=== PATIENT | female | born 1985 | race American Indian/Alaskan Native ===

== ENCOUNTER 2016-05-15 12:27 | Observation (INO) | payer MEDICAID ==
[2016-05-15] MEDS ORDERED: LACTATED RINGERS 1,000 ML IV ONE (13:17)
[2016-05-15] MEDS ORDERED: ZOFRAN IV ONE ×2 (13:20→16:00)
[2016-05-15 16:47] LABS: Blood Urea Nitrogen 10 mg/dL (7-17); Calcium 9.4 mg/dL (8.4-10.2); Carbon Dioxide 15 mmol/L (22-30); Glucose 48 mg/dL (65-100); Potassium 5.4 mmol/L (3.6-5.0); Sodium 132 mmol/L (137-145)
[2016-05-15 16:56] LABS: Anion Gap 27 mmol/L
[2016-05-15] MEDS: LACTATED RINGERS 1,000 ML IV SCH (17:00)
[2016-05-15 17:20] LABS: Urine Drugs of Abuse Note Disclamer
[2016-05-15 17:31] LABS: Bacteria,Urine 1+ /HPF (Negative); Bilirubin,Urine NEG (Negative); Blood,Urine NEG (Negative); Ketones,Urine 80 mg/dL (Negative); Leukocyte Esterase,Urine NEG (Negative); Mucus,Urine FEW /HPF; Nitrite,Urine NEG (Negative); Urobilinogen,Urine < 2.0 mg/dL (<2.0)
[2016-05-15] MEDS: D5NS 1,000 ML IV SCH (18:30)
[2016-05-15] MEDS ORDERED: INFUVITE 10 ML in D5LR 1,000 ML IV ONE (18:54)
--- NOTE | 2016-05-15 19:10 | Short Stay Summary ---
Short Stay Documentation Date of service: 05/15/16 Narrative H&P: C/O: Nausea and vomiting of at 7 weeks gestation 30-year-old at 7+5 wks (SHANON 12/27/16 via sono today) presents with above issues and complaints, she is a [employer] patient. Essential history is patient with nausea vomiting for a while now, she presented to triage with complaint of being ~ 21 weeks gestation based on LMP. Sonogram obtained however shows patient is 7 weeks and 5 days gestation with SHANON 12/27/2016. Lab work shows hyponatremia, hyperkalemia hypoglycemia. She is also positive for MJ use She has received IV hydration and Zofran with some improvement, she is however driving and declines discharge home - "I want to feel completely better before I go home" Gynhx: History of Trichomonas Medhx: None Sughx: #3 (last in 12/29/2012) Obhx: As above Meds:None All:NKDA Fshx:Single, smoker (quit ~ 8 mths ago) MJ use Exam was unremarkable A: N/V of P: -Admit for observation -Continue Zofran scheduled basis -IV hydration with multivitamins -Repeat potassium and obtain CBC -Hyperemesis diet and education -Final disposition in the a.m. - History Past Medical History: No medical history Past Surgical History: (# 3) Social history: single, smoking, full code, no alcohol abuse, no prescription drug abuse, no IV drug use - Allergies and Medications Current Medications: Allergies No Known Allergies Allergy (Verified 05/15/16 13:16) Home Medications Medication Instructions Recorded Confirmed Last Taken Type Ondansetron [Zofran ODT TAB] 8 mg PO Q8HR #30 tab.rapdis 05/15/16 Unknown Rx Pnv95/Ferrous Fumarate/FA 1 each PO DAILY #30 tablet 05/15/16 Unknown Rx [Prenavite Tablet] Active Medications Lactated Ringer's (Lactated Ringers) 1,000 mls @ 150 mls/hr IV DIRECT ROB Last Admin: 05/15/16 17:00 Dose: 150 mls/hr Dextrose/Sodium Chloride (D5ns) 1,000 mls @ 150 mls/hr IV DIRECT ROB Last Admin: 05/15/16 18:30 Dose: 150 mls/hr Dextrose/Lactated Ringer's (D5lr) 1,000 mls @ 500 mls/hr IV DIRECT ROB Stop: 05/16/16 20:59 Multivitamins/Minerals 10 ml/ (Dextrose/Lactated Ringer's) 1,010 mls @ 150 mls/ hr IV ONCE ONE Stop: 05/16/16 01:37 Multivitamins/Iron/Calcium ( Vitamin) 1 each PO QDAY ROB Ondansetron HCl (Zofran) 4 mg IV Q6H ROB Promethazine HCl (Phenergan) 25 mg NV Q6H ROB - Physical exam General appearance: no acute distress, well-nourished Lungs: Clear to auscultation Gastrointestinal: normal, no tenderness, no distended, no masses, no guarding, no hepatomegaly, no splenomegaly, no obese, no costovertebral Female Genitourinary: deferred Extremities: no ischemia Neurological: Normal gait, Normal speech, Strength at 5/5 X4 ext Short Stay Discharge Plan Prescriptions: Pnv95/Ferrous Fumarate/FA [Prenavite Tablet] 1 each PO DAILY #30 tablet Ondansetron [Zofran ODT TAB] 8 mg PO Q8HR #30 tab.zacarias
[2016-05-15 20:00] LABS: Basophils % (Auto) 0.7 % (0.0-1.8); Eosinophils % (Auto) 0.2 % (0.0-4.3); Hematocrit 36.7 % (30.3-42.9); Hemoglobin 12.4 gm/dl (10.1-14.3); Mean Corpuscular HGB Conc 34 % (30-34); Mean Corpuscular Hemoglobin 29 pg (28-32); Mean Corpuscular Volume 85 fl (79-97); Platelet Count 387 K/mm3 (140-440); Red Blood Count 4.33 M/mm3 (3.65-5.03); Red Cell Distribution Width 13.9 % (13.2-15.2); White Blood Count 9.7 K/mm3 (4.5-11.0)
[2016-05-15] MEDS: PHENERGAN PR SCH (21:10)
[2016-05-16] MEDS: ZOFRAN IV SCH ×4 (02:00→21:56)
[2016-05-16] MEDS: PHENERGAN PR SCH ×4 (03:19→22:09)
[2016-05-16] MEDS: LACTATED RINGERS 1,000 ML IV SCH (05:53)
[2016-05-16] MEDS ORDERED: PRENATAL VITAMIN PO SCH (10:00)
[2016-05-16 10:02] LABS: Anion Gap 17 mmol/L; Blood Urea Nitrogen 3 mg/dL (7-17); Calcium 8.1 mg/dL (8.4-10.2); Carbon Dioxide 21 mmol/L (22-30); Glucose 135 mg/dL (65-100); Potassium 3.5 mmol/L (3.6-5.0); Sodium 134 mmol/L (137-145)
[2016-05-16] MEDS: PEPCID IV PRN ×2 (10:33→21:58)
--- NOTE | 2016-05-16 12:32 | Progress Note ---
Assessment and Plan A: IUP at 7+6 wks with N/V of P: -Increase Zofran to 8 mg every 8 -Continue Present care - Patient Problems (1) Nausea/vomiting in Current Visit: Yes Status: Acute Subjective - Subjective Date of service: 05/16/16 Principal diagnosis: IUP @ 7+6 wks, N/V of Interval history: Patient seen and examined, stable. Had 2 episodes of nausea and vomiting this morning, now just producing sputum. Patient reports: no new complaints, no vaginal bleeding, no contractions Objective - Vital Signs Vital Signs: Vital Signs - 12hr 05/16/16 05/16/16 04:00 07:22 Temperature 98.4 F 98.7 F Pulse Rate [ 62 Right From Monitor] Pulse Rate [ 82 Right Radial] Respiratory 18 18 Rate Blood Pressure 92/49 114/60 [Right Arm] - Labs Labs: Abnormal Labs 05/15/16 05/15/16 05/15/16 15:28 19:40 22:20 [place] % (Auto) 7.9 H Sodium 132 L Potassium 5.4 H 3.5 L D Chloride 95.0 L Carbon Dioxide 15 L BUN Creatinine 0.5 L Glucose 48 L Calcium 05/16/16 09:00 [place] % (Auto) Sodium 134 L Potassium 3.5 L Chloride Carbon Dioxide 21 L BUN 3 L Creatinine 0.5 L Glucose 135 H Calcium 8.1 L Laboratory Results - last 24 hr 05/15/16 05/15/16 05/15/16 15:28 17:00 17:00 WBC RBC Hgb Hct MCV MCH MCHC RDW Plt Count Lymph % (Auto) [place] % (Auto) Eos % (Auto) Baso % (Auto) Lymph # [place] # Eos # Baso # Seg Neutrophils % Seg Neutrophils # Sodium 132 L Potassium 5.4 H Chloride 95.0 L Carbon Dioxide 15 L Anion Gap 27 BUN 10 Creatinine 0.5 L Estimated GFR > 60 BUN/Creatinine Ratio 20.00 Glucose 48 L Calcium 9.4 Urine Color Yellow Urine Turbidity Clear Urine pH 5.0 Ur Specific [place] 1.025 Urine Protein 30 mg/dl Urine Glucose (UA) Neg Urine Ketones 80 Urine Blood Neg Urine Nitrite Neg Urine Bilirubin Neg Urine Urobilinogen < 2.0 Ur Leukocyte Esterase Neg Urine WBC (Auto) 1.0 Urine RBC (Auto) 3.0 U Epithel Cells (Auto) 1.0 Urine Bacteria (Auto) 1+ Urine Mucus Few Urine Opiates Screen Presumptive negative Urine Methadone Screen Presumptive negative Ur Barbiturates Screen Presumptive negative Ur Phencyclidine Scrn Presumptive negative Ur Amphetamines Screen Presumptive negative U Benzodiazepines Scrn Presumptive negative Urine Cocaine Screen Presumptive negative U Marijuana (THC) Screen Presumptive positive Drugs of Abuse Note Disclamer Hepatitis A IgM Ab Hep Bs Antigen Hep B Core IgM Ab Hepatitis C Antibody 05/15/16 05/15/16 05/15/16 19:40 19:40 22:20 WBC 9.7 RBC 4.33 Hgb 12.4 Hct 36.7 MCV 85 MCH 29 MCHC 34 RDW 13.9 Plt Count 387 Lymph % (Auto) 27.8 [place] % (Auto) 7.9 H Eos % (Auto) 0.2 Baso % (Auto) 0.7 Lymph # 2.7 [place] # 0.8 Eos # 0.0 Baso # 0.1 Seg Neutrophils % 63.4 Seg Neutrophils # 6.1 Sodium Potassium 3.5 L D Chloride Carbon Dioxide Anion Gap BUN Creatinine Estimated GFR BUN/Creatinine Ratio Glucose Calcium Urine Color Urine Turbidity Urine pH Ur Specific [place] Urine Protein Urine Glucose (UA) Urine Ketones Urine Blood Urine Nitrite Urine Bilirubin Urine Urobilinogen Ur Leukocyte Esterase Urine WBC (Auto) Urine RBC (Auto) U Epithel Cells (Auto) Urine Bacteria (Auto) Urine Mucus Urine Opiates Screen Urine Methadone Screen Ur Barbiturates Screen Ur Phencyclidine Scrn Ur Amphetamines Screen U Benzodiazepines Scrn Urine Cocaine Screen U Marijuana (THC) Screen Drugs of Abuse Note Hepatitis A IgM Ab -1 Hep Bs Antigen Non-reactive Hep B Core IgM Ab Non-reactive Hepatitis C Antibody Non-reactive 05/16/16 09:00 WBC RBC Hgb Hct MCV MCH MCHC RDW Plt Count Lymph % (Auto) [place] % (Auto) Eos % (Auto) Baso % (Auto) Lymph # [place] # Eos # Baso # Seg Neutrophils % Seg Neutrophils # Sodium 134 L Potassium 3.5 L Chloride 100.0 Carbon Dioxide 21 L Anion Gap 17 BUN 3 L Creatinine 0.5 L Estimated GFR > 60 BUN/Creatinine Ratio 6.00 Glucose 135 H Calcium 8.1 L Urine Color Urine Turbidity Urine pH Ur Specific [place] Urine Protein Urine Glucose (UA) Urine Ketones Urine Blood Urine Nitrite Urine Bilirubin Urine Urobilinogen Ur Leukocyte Esterase Urine WBC (Auto) Urine RBC (Auto) U Epithel Cells (Auto) Urine Bacteria (Auto) Urine Mucus Urine Opiates Screen Urine Methadone Screen Ur Barbiturates Screen Ur Phencyclidine Scrn Ur Amphetamines Screen U Benzodiazepines Scrn Urine Cocaine Screen U Marijuana (THC) Screen Drugs of Abuse Note Hepatitis A IgM Ab Hep Bs Antigen Hep B Core IgM Ab Hepatitis C Antibody
[2016-05-16] MEDS: D5LR 1,000 ML IV SCH ×3 (12:33→19:34)
[2016-05-16] MEDS ORDERED: PEPCID PO SCH (22:00)
[2016-05-16] MEDS ORDERED: AMBIEN PO ONE (23:30)
[2016-05-17] MEDS: D5NS 1,000 ML IV SCH (03:07)
[2016-05-17] MEDS: ZOFRAN IV SCH (05:47)
--- NOTE | 2016-05-17 08:40 | Progress Note ---
Assessment and Plan A: IUP at 8 wks with N/V of & Ptyalism -Doing well P: -Await Nutrition consult -Likely D/C after above - Patient Problems (1) Nausea/vomiting in Current Visit: Yes Status: Acute (2) Ptyalism Current Visit: Yes Status: Acute Subjective - Subjective Date of service: 05/17/16 Principal diagnosis: IUP @ 8 wks, N/V of Interval history: Patient seen and examined, stable. No further episodes of vomiting noted per staff development educator; however continues to have ptyalism Patient reports: no new complaints, no loss of fluid, no vaginal bleeding, no contractions Objective - Vital Signs Vital Signs: Vital Signs - 12hr 05/16/16 05/17/16 23:05 04:35 Temperature 99.6 F 99.2 F Pulse Rate [ 74 65 Right Radial] Respiratory 18 16 Rate Blood Pressure 98/59 97/69 [Right Arm] - Labs Labs: Abnormal Labs 05/15/16 05/15/16 05/15/16 15:28 19:40 22:20 [place] % (Auto) 7.9 H Sodium 132 L Potassium 5.4 H 3.5 L D Chloride 95.0 L Carbon Dioxide 15 L BUN Creatinine 0.5 L Glucose 48 L Calcium 05/16/16 09:00 [place] % (Auto) Sodium 134 L Potassium 3.5 L Chloride Carbon Dioxide 21 L BUN 3 L Creatinine 0.5 L Glucose 135 H Calcium 8.1 L Laboratory Results - last 24 hr 05/16/16 09:00 Sodium 134 L Potassium 3.5 L Chloride 100.0 Carbon Dioxide 21 L Anion Gap 17 BUN 3 L Creatinine 0.5 L Estimated GFR > 60 BUN/Creatinine Ratio 6.00 Glucose 135 H Calcium 8.1 L
--- NOTE | 2016-05-17 08:49 | Discharge Summary ---
Providers - Providers Date of Admission: 05/15/16 20:15 Date of discharge: 05/17/16 Attending physician: MARCY MARTIN MD 05/15/16 18:54 Consult to Dietitian/Nutrition [CONS] Routine Physician Instructions: Reason For Exam: Reason for Consult: hyper grav Reason for Consult: Diet education Primary care physician: MARCY MARTIN MD Hospitalization Reason for admission: other (IUP at < 9 wks with N/V of ) Discharge diagnosis: other (IUP at 8 wks with N/V of and Ptyalism) Hospital course: Uncomplicated hospital course. Admitted and started on antiemetics and IV hydration. Electrolyte imbalance was corrected; had nutrition discussion and advised to start BRAT diet. Discharged home in stable condition Condition at discharge: Good Disposition: DISCHARGED TO HOME OR SELFCARE - Discharge Diagnoses (1) Nausea/vomiting in Status: Acute (2) Ptyalism Status: Acute Plan - Discharge Medications Prescriptions: Pnv95/Ferrous Fumarate/FA [Prenavite Tablet] 1 each PO DAILY #30 tablet Ondansetron [Zofran ODT TAB] 8 mg PO Q8HR #30 tab.rapdis - Provider Discharge Summary Activity: routine Diet: other (Start BRAT diet, follow advise on Nutrition) Additional instructions: [] Smoking cessation referral if applicable(refer to patient education folder for contact #) [] Refer to [facility] Booklet Call your doctor immediately for: * Fever > 100.5 * Heavy vaginal bleeding ( >1 pad per hour) * Severe persistent headache * Shortness of breath * Reddened, hot, painful area to leg or breast * Drainage or odor from incision. * Keep incision clean and dry at all times and follow doctor's instructions regarding bathing/showering - Follow up plan Follow up: MARCY TRIMBLE MD [Primary Care Provider] - 7 Days Forms: Work/School Release Form
--- NOTE | 2016-05-17 09:19 | Ultrasound Report ---
OB ultrasound: Endovaginal and transabdominal imaging demonstrates an intrauterine gestational sac containing a yolk sac as well as a fetus with having a crown-rump length of approximately 14.1 mm. This is equivalent to a 7 week 5 day gestation. There is heart motion of 162 beats per minute. No intrauterine complication identified. The uterus measures approximately 5.5 x 6.0 x 9.5 cm. Neither ovary is identified nor is there any free fluid. Impressions: Viable prather IUP with no complication identified.
[2016-05-17 14:52] VITALS: BP 98/50
== END 2016-05-17 14:35 | disposition home or self-care (01) ==
LOC: TRG 12:27 → OB 20:15 → TRG 20:15
PROVIDERS: ADMIT Obstetrics & Gynecology; ATTEND Obstetrics & Gynecology
DX: O21.9 Vomiting of pregnancy, unspecified (principal); O26.892 Other specified pregnancy related conditions, second trimester; R11.0 Nausea; O99.612 Diseases of the digestive system complicating pregnancy, second trimester; K11.7 Disturbances of salivary secretion; Z3A.21 21 weeks gestation of pregnancy
CPT/HCPCS: 36415; 76801; 76817; 80048; 80074; 81001; 84132; 85025; 96361; 96365; 96366; 96375; 96376; G0378; G0479; J2405; J7042; J7120; J7121; 80301; 96360; 96374

== ENCOUNTER 2016-09-03 14:51 | Emergency (ER) | payer MEDICAID ==
[2016-09-03 15:52] VITALS: BP 105/60
[2016-09-03 16:31] LABS: Hematocrit 34.6 % (30.3-42.9); Hemoglobin 11.4 gm/dl (10.1-14.3); Mean Corpuscular HGB Conc 33 % (30-34); Mean Corpuscular Hemoglobin 29 pg (28-32); Mean Corpuscular Volume 88 fl (79-97); Platelet Count 310 K/mm3 (140-440); Red Blood Count 3.92 M/mm3 (3.65-5.03); Red Cell Distribution Width 14.3 % (13.2-15.2); White Blood Count 19.9 K/mm3 (4.5-11.0)
[2016-09-03] MEDS ORDERED: TYLENOL PO ONE (16:42)
[2016-09-03] MEDS ORDERED: ZOFRAN IV ONE (16:42)
[2016-09-03] MEDS ORDERED: NACL 0.9% 1000 ML 1,000 ML IV ONE (16:42)
[2016-09-03 16:46] LABS: Anion Gap 21 mmol/L; Blood Urea Nitrogen 8 mg/dL (7-17); Calcium 8.2 mg/dL (8.4-10.2); Carbon Dioxide 18 mmol/L (22-30); Chloride 101.7 mmol/L (98-107); Glucose 77 mg/dL (65-100); Potassium 3.8 mmol/L (3.6-5.0); Sodium 137 mmol/L (137-145)
[2016-09-03 17:07] LABS: Bilirubin,Urine NEG (Negative); Blood,Urine NEG (Negative); Ketones,Urine 80 mg/dL (Negative); Leukocyte Esterase,Urine NEG (Negative); Mucus,Urine 1+ /HPF; Nitrite,Urine NEG (Negative); Urobilinogen,Urine < 2.0 mg/dL (<2.0)
[2016-09-03 17:32] LABS: Alanine Aminotransferase 11 units/L (7-56); Albumin 3.6 g/dL (3.9-5); Albumin/Globulin Ratio 1.1 %; Alkaline Phosphatase 90 units/L (35-129); Bilirubin,Total 0.2 mg/dL (0.1-1.2); Lipase 41 units/L (13-60); Total Protein 6.9 g/dL (6.3-8.2)
[2016-09-03 17:33] LABS: Basophils % (Manual) 0 % (0.0-1.8); Bilirubin,Direct < 0.2 mg/dL (0-0.2); Blastocytes % (Manual) 0 %; Eosinophils % (Manual) 0 % (0.0-4.3)
[2016-09-03 17:35] LABS: Diff Status Complete; Platelet Estimate Consistent w Auto; RBC Morphology Normal
--- NOTE | 2016-09-03 17:42 | Emergency Department Report ---
HPI - General Chief Complaint: Nausea/Vomiting/Diarrhea Time Seen by Provider: 09/03/16 16:31 - HPI HPI: The patient is a 30-year-old EGA 24 weeks female who presents for evaluation of abdominal pain and vomiting. The patient reports nausea, vomiting , and epigastric abdominal pain since 10 AM this morning, approximately 6 hours prior to my evaluation, constant since onset, pain crampy in quality, 5/10 in severity. The patient denies fever, chills, night sweats, diarrhea, blood in the stool, dark tarry stool, dysuria, hematuria, flank pain, vaginal bleeding, vaginal discharge, inability to pass flatus. She shares that she has established care with an ELECTRICAL INSTRUMENT TECHNICIAN and has received an ultrasound confirming intrauterine . ED Past Medical Hx - Past Medical History Previous Medical History?: No Hx Hypertension: No Hx Congestive Heart Failure: No Hx Diabetes: No Hx Deep Vein Thrombosis: No Hx Renal Disease: No Hx Sickle Cell Disease: No Hx Seizures: No Hx Asthma: No Hx COPD: No Hx HIV: No - Surgical History Past Surgical History?: Yes Additional Surgical History: x 3, wisdom teeth removed. - Social History Smoking Status: Former Smoker Substance Use Type: None - Medications Home Medications: Home Medications Medication Instructions Recorded Confirmed Last Taken Type Ondansetron [Zofran ODT TAB] 8 mg PO Q8HR #30 tab.rapdis 05/15/16 Unknown Rx Pnv95/Ferrous Fumarate/FA 1 each PO DAILY #30 tablet 05/15/16 Unknown Rx [Prenavite Tablet] Famotidine [Pepcid] 20 mg PO BID #60 tablet 05/17/16 Unknown Rx Promethazine [Phenergan] 12.5 mg RI Q6H PRN #30 supp.rect 05/17/16 Unknown Rx Famotidine [Pepcid] 20 mg PO BID #30 tablet 09/03/16 Unknown Rx Ondansetron [Zofran TAB] 4 mg PO Q8HR PRN #15 tablet 09/03/16 Unknown Rx ED Review of Systems ROS: Stated complaint: N/ VOMITTING BLOOD Other details as noted in HPI Constitutional: denies: fever ENT: denies: throat or neck pain Respiratory: denies: cough, shortness of breath Cardiovascular: denies: chest pain Endocrine: denies unexplained weight loss or gain Gastrointestinal: reports: abdominal pain, nausea Genitourinary: denies: dysuria Musculoskeletal: denies: leg swelling Skin: denies: rash Neurological: denies: headache Hematological/Lymphatic: denies: easy bleeding or easy bruising Psych: denies sadness or hopelessness Physical Exam - Physical Exam Vital Signs: Vital Signs 09/03/16 15:46 Temperature 98.1 F Pulse Rate 97 H Respiratory 18 Rate Blood Pressure 105/60 O2 Sat by Pulse 99 Oximetry Physical Exam: General: well-nourished, well-developed, no acute distress Head: Normocephalic, atraumatic Eyes: normal sclera ENT: Mucous membranes are pale and dry Neck: No neck stiffness, no cervical adenopathy Respiratory: Breath sounds equal bilaterally, no wheezing, rales, or rhonchi Cardio: S1 and S2 present, no murmurs, rubs, gallops, capillary refill is delayed Abdomen: Normoactive bowel sounds, soft abdomen, epigastric tenderness to palpation present, no rigidity, no guarding or rebound tenderness Musc: No pitting edema Skin: No rash Neuro: no facial drooping, normal speech Psych: Normal affect ED Course Vital Signs 09/03/16 15:46 Temperature 98.1 F Pulse Rate 97 H Respiratory 18 Rate Blood Pressure 105/60 O2 Sat by Pulse 99 Oximetry ED Medical Decision Making - Lab Data Result diagrams: 09/03/16 16:06 09/03/16 16:06 - Medical Decision Making The patient was seen and examined by myself. The patient is placed on a lock fitter and continuous pulse ox. On initial evaluation, the patient was found to be in no distress. Evaluation orders are placed. IV access is established and the patient is given 1 L normal saline fluid bolus for txt of dehydration, and IV Zofran for nausea, a tab of tylenol for her pain. Lab results revealed elevated WBC, tobacco during , and otherwise labs were unremarkable including hemoglobin, hematocrit, electrolytes, renal function , LFTs, lipase, and urinalysis. heart tones were obtained and were found to be within normal limit at 160. The patient was reevaluated and reported that her nausea and abdominal pain were resolved. The patient is stable for discharge with outpatient follow-up. The patient is given follow-up and return instructions. The patient expressed understanding and agreed with the plan. The patient is discharged in stable condition. Critical care attestation.: If time is entered above; I have spent that time in minutes in the direct care of this critically ill patient, excluding procedure time. ED Disposition Clinical Impression: Nausea/vomiting in , Abdominal pain, acute, epigastric, Dehydration Disposition: DISCHARGED TO HOME OR SELFCARE Is pt being admited?: No Does the pt Need Aspirin: No Condition: Stable Instructions: Acute Abdominal Pain (ED), Hyperemesis Gravidarum (ED) Prescriptions: Famotidine [Pepcid] 20 mg PO BID #30 tablet Ondansetron [Zofran TAB] 4 mg PO Q8HR PRN #15 tablet PRN Reason: Nausea Referrals: PRIMARY CARE,MD [Primary Care Provider] - 3-5 Days Time of Disposition: 17:36
== END 2016-09-03 17:52 | disposition home or self-care (01) ==
LOC: ED 14:51
DX: O21.9 Vomiting of pregnancy, unspecified (principal); E86.0 Dehydration; R11.0 Nausea; R10.13 Epigastric pain; Z87.891 Personal history of nicotine dependence; Z3A.24 24 weeks gestation of pregnancy
CPT/HCPCS: 36415; 80048; 80074; 81001; 83690; 85007; 85025; 96361; 96374; 99284; J2405; J7030

== ENCOUNTER 2016-10-17 20:03 | Outpatient (CLI) | payer MEDICAID ==
[2016-10-17] MEDS ORDERED: LACTATED RINGERS 500 ML IV ONE (20:12)
[2016-10-17 20:44] LABS: Bacteria,Urine 1+ /HPF (Negative); Bilirubin,Urine NEG (Negative); Blood,Urine NEG (Negative); Ketones,Urine NEG (Negative); Leukocyte Esterase,Urine NEG (Negative); Nitrite,Urine NEG (Negative); Protein,Urine <15 mg/dL mg/dL (Negative); Urobilinogen,Urine < 2.0 mg/dL (<2.0); WBC,Urine < 1.0 /HPF (0.0-6.0)
[2016-10-17] MEDS ORDERED: PEPCID IV ONE (20:51)
[2016-10-17] MEDS ORDERED: PEPCID IV SCH (21:00)
[2016-10-17] MEDS ORDERED: SUBLIMAZE IV ONE (21:03)
[2016-10-17] MEDS ORDERED: CARAFATE PO SCH (22:00)
[2016-10-19 04:51] VITALS: BP 105/56
== END 2016-10-17 22:45 | disposition home or self-care (01) ==
LOC: TRG 20:03
PROVIDERS: ATTEND Obstetrics & Gynecology
DX: O26.893 Other specified pregnancy related conditions, third trimester (principal); R06.02 Shortness of breath; M54.9 Dorsalgia, unspecified; Z3A.30 30 weeks gestation of pregnancy
CPT/HCPCS: 59025; 81001; 96360; 96374; 96375; J3010; J7120

== ENCOUNTER 2016-10-29 15:46 | Outpatient (CLI) | payer MEDICAID ==
[2016-10-29] MEDS ORDERED: LACTATED RINGERS 500 ML IV ONE (16:00)
[2016-10-29 16:17] VITALS: BP 114/68
[2016-10-29 17:54] LABS: Bilirubin,Urine NEG (Negative); Blood,Urine NEG (Negative); Ketones,Urine 20 mg/dL (Negative); Leukocyte Esterase,Urine NEG (Negative); Mucus,Urine FEW /HPF; Nitrite,Urine NEG (Negative); Protein,Urine <15 mg/dL mg/dL (Negative); Urobilinogen,Urine < 2.0 mg/dL (<2.0)
== END 2016-10-29 18:30 | disposition left against medical advice (07) ==
LOC: TRG 15:46
PROVIDERS: ATTEND Obstetrics & Gynecology
DX: O47.03 False labor before 37 completed weeks of gestation, third trimester (principal); Z3A.31 31 weeks gestation of pregnancy; Z87.891 Personal history of nicotine dependence
CPT/HCPCS: 59025; 81001

== ENCOUNTER 2016-11-21 01:54 | Observation (INO) | payer MEDICAID ==
[2016-11-21] MEDS ORDERED: LACTATED RINGERS 1,000 ML ONE (02:08)
[2016-11-21] MEDS ORDERED: LACTATED RINGERS 1,000 ML IV ONE (02:18)
[2016-11-21 02:31] LABS: Bacteria,Urine 1+ /HPF (Negative); Bilirubin,Urine NEG (Negative); Blood,Urine MOD (Negative); Ketones,Urine NEG (Negative); Leukocyte Esterase,Urine NEG (Negative); Nitrite,Urine NEG (Negative); Protein,Urine <15 mg/dL mg/dL (Negative); Urobilinogen,Urine < 2.0 mg/dL (<2.0); WBC,Urine < 1.0 /HPF (0.0-6.0)
[2016-11-21] MEDS ORDERED: MACROBID PO ONE (02:53)
[2016-11-21] MEDS ORDERED: BRETHINE IVP ONE (03:15)
[2016-11-21 07:36] VITALS: BP 114/75
== END 2016-11-21 09:11 | disposition home or self-care (01) ==
LOC: TRG 01:54 → OBSVTOIN 03:16 → LD 03:16 → INTOOBSV 03:16
PROVIDERS: ADMIT Obstetrics & Gynecology; ATTEND Obstetrics & Gynecology
DX: O62.9 Abnormality of forces of labor, unspecified (principal); O26.893 Other specified pregnancy related conditions, third trimester; M54.5 Low back pain; Z3A.34 34 weeks gestation of pregnancy; Z87.891 Personal history of nicotine dependence
CPT/HCPCS: 81001; G0378; J3105; J7120; 96361; 96374

== ENCOUNTER 2016-12-02 21:28 | Inpatient (IN) | payer MEDICAID ==
[~2016-12-02 21:28] MED LIST: NACL 0.9% IR ONE; WATER FOR IRRIG STERILE IR ONE
[2016-12-02] MEDS ORDERED: LACTATED RINGERS 1,000 ML IV ONE (21:49)
[2016-12-02] MEDS ORDERED: PEPCID IV ONE ×2 (23:22→23:24)
[2016-12-02] MEDS ORDERED: BICITRA PO ONE ×2 (23:22→23:24)
[2016-12-02] MEDS ORDERED: REGLAN IV ONE ×2 (23:22→23:24)
--- NOTE | 2016-12-02 23:34 | History and Physical Report ---
History of Present Illness Date of examination: 12/02/16 Chief complaint: Severe abdominal pains after falling History of present illness: Pt is a 31yo BF EDC 12/27/16; EGA 36 3/7 weeks presents to [facility] L&D complaining of severe abdominal pains after a fall in the shower. On presentation to Triage FHT's 170-180 with decels - improved with IV hydration, but Ob u/s showed possible abruption, and there is marked tenderness with the u/ s probe over the placenta. Her abdomen is firm, and I suspect she may be abrupting. We will proceed with a Repeat C Section with BTL. She has been hospitalized several times during this , the last time being - 04/01. She received care at [facility] since 6 weeks and course has been complicated by previous c section x 3 and psychological stress due to her fiance's murder in May of this year. records are available, but GBS is unknown. Past History Past Medical History: GERD Past Surgical History: section (x3) REIMBURSEMENT CONSULTANT History: abnormal PAP smear, chlamydia Family/Genetic History: cancer Social history: no significant social history, single, smoking - Obstetrical History Expected Date of Delivery: 12/27/16 Actual Gestation: 36 Week(s) 4 Day(s) : 6 Medications and Allergies Allergies Allergy/AdvReac Type Severity Reaction Status Date / Time oxycodone Allergy Mild Hives Verified 10/18/16 20:50 Home Medications Medication Instructions Recorded Confirmed Last Taken Type Ondansetron [Zofran ODT TAB] 8 mg PO Q8HR #30 tab.rapdis 05/15/16 10/20/16 Unknown Rx Pnv95/Ferrous Fumarate/FA 1 each PO DAILY #30 tablet 05/15/16 10/20/16 Unknown Rx [Prenavite Tablet] Promethazine [Phenergan] 12.5 mg NM Q6H PRN #30 supp.rect 05/17/16 10/20/16 Unknown Rx Famotidine [Pepcid] 20 mg PO BID #30 tablet 09/03/16 10/20/16 Unknown Rx Ondansetron [Zofran TAB] 4 mg PO Q8HR PRN #15 tablet 09/03/16 10/20/16 Unknown Rx Pantoprazole [Protonix INJ] 40 mg PO QDAY #30 vial 10/24/16 Unknown Rx Pantoprazole [Protonix] 40 mg PO QDAY #30 tablet 10/24/16 Unknown Rx Active Meds: Active Medications Citric Acid/Sodium Citrate (Bicitra) 30 ml PO ONCE ONE Stop: 12/02/16 23:23 Citric Acid/Sodium Citrate (Bicitra) 30 ml PO ONCE ONE Stop: 12/02/16 23:25 Famotidine (Pepcid) 20 mg IV ONCE ONE Stop: 12/02/16 23:23 Famotidine (Pepcid) 20 mg IV ONCE ONE Stop: 12/02/16 23:25 Cefazolin Sodium (Ancef/Sterile Water 2 Gm/20 Ml) 2 gm in 20 mls @ 80 mls/hr IV PREOP NR PRN Reason: Protocol Lactated Ringer's (Lactated Ringers) 1,000 mls @ 2,250 mls/hr IV PREOP ROB Stop: 12/04/16 00:12 Oxytocin/Sodium Chloride (Pitocin/Ns 20 Unit/1000ml Drip) 20 units in 1,000 mls @ 0 mls/hr IV TITR ROB PRN Reason: As Directed Lactated Ringer's (Lactated Ringers) 1,000 mls @ 2,250 mls/hr IV PREOP ROB Stop: 12/04/16 00:12 Oxytocin/Sodium Chloride (Pitocin/Ns 20 Unit/1000ml Drip) 20 units in 1,000 mls @ 0 mls/hr IV TITR ROB PRN Reason: As Directed Cefazolin Sodium (Ancef/Sterile Water 2 Gm/20 Ml) 2 gm in 20 mls @ 80 mls/hr IV PREOP NR PRN Reason: Protocol Metoclopramide HCl (Reglan) 10 mg IV ONCE ONE Stop: 12/02/16 23:23 Metoclopramide HCl (Reglan) 10 mg IV ONCE ONE Stop: 12/02/16 23:25 Review of Systems All systems: negative - Vital Signs Vital signs: Vital Signs Pulse BP 117 H 160/65 12/02/16 21:38 12/02/16 21:38 Temp Pulse Resp BP Pulse Ox 98.3 F 108 H 20 111/70 98 12/02/16 21:52 12/02/16 22:42 12/02/16 21:52 12/02/16 22:09 12/02/16 22:42 - Physical Exam Breasts: Positive: deferred Cardiovascular: Regular rate Lungs: Positive: Clear to auscultation Abdomen: Positive: normal appearance, tenderness (RUQ) Genitourinary (Female): Positive: normal external genitalia Uterus: Positive: enlarged, tender Extremities: Positive: normal - Obstetrical FHR: category 2 Uterine Contraction Monitor Mode: External Results Result Diagrams: 12/02/16 21:58 All other labs normal. Ultrasound: pending Assessment and Plan - Patient Problems (1) 36 weeks gestation of Onset Date: 12/02/16 Current Visit: Yes Status: Acute Plan to address problem: A: IUP @ 36 3/7 weeks Previous C Section x 3 Cat II Tracing Suspect abruptio placenta Desires permanent sterilization P: Admit to L&D for repeat C Section with BTL Will obtain BTL papers. (2) Previous delivery affecting Onset Date: 12/02/16 Current Visit: Yes Status: Acute
[2016-12-02] MEDS ORDERED: LACTATED RINGERS 1,000 ML IV SCH ×2 (23:45)
[2016-12-02] MEDS ORDERED: ANCEF/STERILE WATER 2 GM/20 ML 2 GM/20 ML SYRINGE IV NR ×2 (23:45)
[2016-12-02] MEDS ORDERED: PITOCin/NS 20 UNIT/1000ML DRIP 20 UNITS/1,000 ML BAG IV SCH ×2 (23:45)
[2016-12-02 23:49] LABS: Basophils % (Auto) 0.5 % (0.0-1.8); Eosinophils % (Auto) 0.9 % (0.0-4.3); Hematocrit 30.9 % (30.3-42.9); Mean Corpuscular HGB Conc 33 % (30-34); Mean Corpuscular Hemoglobin 28 pg (28-32); Mean Corpuscular Volume 85 fl (79-97); Platelet Count 337 K/mm3 (140-440); Red Blood Count 3.63 M/mm3 (3.65-5.03); White Blood Count 13.5 K/mm3 (4.5-11.0)
--- NOTE | 2016-12-03 | Ultrasound Report ---
FINAL REPORT PROCEDURE: US OB LIMITED TECHNIQUE: Real-time limited sonographic examination was performed for evaluation of size, position, heartbeat, fluid volume for each fetus with image documentation (1 or more fetuses). CPT 42464 HISTORY: tachycardia and decelerations COMPARISON: No prior studies are available for comparison. FINDINGS: Single live intrauterine gestation. Placenta is posterior and fundal. There is no previa. There are prominent retroplacental veins but no evidence of hematoma. Amniotic fluid index is 13.9 centimeters. heart rate is 163 beats per minute. IMPRESSION: Limited examination. Single live intrauterine gestation. Placenta is posterior and fundal. There is no previa. There are prominent retroplacental veins but no evidence of hematoma. Amniotic fluid index is 13.9 centimeters. heart rate is 163 beats per minute.
--- NOTE | 2016-12-03 00:01 | Ultrasound Report ---
FINAL REPORT PROCEDURE: US OB BPP WO NON-STRESS TECHNIQUE: Real-time limited sonographic examination was performed for evaluation of size, position, heartbeat, fluid volume for each fetus with image documentation (1 or more fetuses). CPT 76656 HISTORY: tachycardia COMPARISON: No prior studies are available for comparison. FINDINGS: breathing movements: 0. movements: 2. posterior and tone: 2. Qualitative amniotic fluid volume: 2. Total score for biophysical profile: 6/8. IMPRESSION: Total score for biophysical profile: 6/8.
[2016-12-03] MEDS ORDERED: ZOFRAN ONE (00:09)
[2016-12-03] MEDS ORDERED: VERSED ONE ×3 (00:45→01:00)
[2016-12-03] MEDS ORDERED: MORPHINE ONE (00:45)
[2016-12-03] MEDS ORDERED: SUBLIMAZE ONE ×2 (00:45→01:01)
[2016-12-03] MEDS ORDERED: XYLOCAINE MPF 2% ONE ×3 (00:50→01:01)
[2016-12-03] MEDS ORDERED: NACL 0.9% 1000 ML 1,000 ML ONE (01:04)
--- NOTE | 2016-12-03 01:25 | Operative Report ---
Operative Report Operative Report: Date of procedure: 12/03/2016 Pre-operative diagnosis: 1. Intrauterine at 36-3/7 weeks 2. Previous 3 3. Nonreassuring surveillance 4. Suspected placental abruption status post fall 5. Desires permanent sterilization Post-operative diagnosis: Same Procedure name(s): Repeat low transverse section with bilateral tubal ligation Surgeon: Romario Shaw MD Web Specialist: None Anesthesia: Spinal anesthesia by Dr. Bowman EBL: 700 mL's Findings: A 3023 g female infant Apgars 8 at 1 minute 8 at 5 minutes. Meconium- stained fluid. Normal uterus with no obvious evidence of abruption. Normal tubes and ovaries bilaterally. Procedure: After the patient was prepped and draped in usual sterile fashion, and after satisfactory level of epidural anesthesia was obtained, the skin knife was used to make a transverse skin incision through the previous skin scars. The incision was excised down to layer of the fascia, which was nicked in the midline and extended laterally using the Bovie cautery. The rectus muscles were dissected off the rectus fascia both superiorly and inferiorly. The rectus bellies in the midline, and the peritoneum was entered under direct visualization. The peritoneal incision was extended superiorly and inferiorly. A bladder flap was created and the bladder blade was then placed. The uterus was scored in a curvilinear linear fashion, entered in the midline revealing meconium-stained amniotic fluid. The 's head was delivered onto the surgical field, and the oropharynx and nasopharynx were bulb suctioned. The rest of the infant's body was delivered, cord was doubly clamped and cut and the was handed to the waiting respiratory team. Cord blood was then obtained. The placenta was manually removed from the uterus , and the uterus removed from its normal anatomical position. After gentle uterine lavage, the incision was inspected and found to be without extensions. It was then closed in 2 layers using 0 Vicryl suture in a running interlocking fashion, the second layer imbricating the first. At this point, attention was turned to the tubal ligation. First the right fallopian tube was grasped using the [place], and after identifying the fimbriated end the right tube a Filshie clip was applied to the proximal portion of the tube. The same procedure was performed on the left fallopian tube. The tube was grasped using a Jim, after first identifying the fimbriated end of the left fallopian tube a Filshie clip was applied to the proximal portion of the tube. After good hemostasis was achieved, copious amounts or irrigation was performed , and the gutters were suctioned free of blood and blood clots. The Tisseel sealant was sprayed across the uterine incision. The uterus was then returned to its normal anatomical position, and after excellent hemostasis assured, the peritoneum was reapproximated using 3-0 Vicryl suture in a running interlocking fashion, and then the rectus muscles were reapproximated using 3-0 Vicryl suture in a [id number] configuration. The fascia was then reapproximated using 0 Vicryl suture in running interlocking fashion. The subcutaneous layer was made hemostatic using Bovie cautery, the Tisseel sealant was sprayed across the fascial incision and the skin edges reapproximated using 4-0 Vicryl suture in a subcuticular fashion. Patient tolerated the procedure well was transported to recovery in stable condition.
[2016-12-03] MEDS ORDERED: SENOKOT PO PRN (01:29)
[2016-12-03] MEDS ORDERED: LANSINOH TP PRN (01:29)
[2016-12-03] MEDS ORDERED: MYLICON PO PRN (01:29)
[2016-12-03] MEDS ORDERED: NARCAN 0.4 MG/1 ML IV PRN (01:29)
[2016-12-03] MEDS ORDERED: TORADOL IV PRN (01:29)
[2016-12-03] MEDS ORDERED: TUCKS PAD TP PRN (01:29)
[2016-12-03] MEDS ORDERED: PHENERGAN PR PRN (01:29)
[2016-12-03] MEDS ORDERED: MILK OF MAGNESIA PO PRN (01:29)
[2016-12-03] MEDS ORDERED: TYLENOL PO PRN (01:29)
--- NOTE | 2016-12-03 01:34 | Anesthesia Consultation ---
Anesthesia Consult and Med Hx Date of service: 12/03/16 - Airway Anesthetic Teeth Evaluation: Good ROM Head & Neck: Adequate Mental/Hyoid Distance: Adequate Mallampati Class: Class II Intubation Access Assessment: Probably Good - Pulmonary Exam CTA: Yes - Cardiac Exam Cardiac Exam: RRR - Pre-Operative Health Status ASA Pre-Surgery Classification: ASA2, Emergency Proposed Anesthetic Plan: Epidural, Spinal - Pulmonary Hx Asthma: No COPD: No Hx Pneumonia: No - Cardiovascular System Hx Hypertension: No - Central Nervous System Hx Seizures: No Hx Psychiatric Problems: No - Endocrine Hx Renal Disease: No Hx End Stage Renal Disease: No Hx Hypothyroidism: No Hx Hyperthyroidism: No - Hematic Hx Anemia: No Hx Sickle Cell Disease: No - Other Systems Hx Alcohol Use: No - Additional Comments Anesthesia Medical History Comments: +IUP, PREVIOUS X 3
--- NOTE | 2016-12-03 01:34 | Anesthesia Day of Surgery ---
Anesthesia Day of Surgery - Day of Surgery Patient Examined: Yes Patient H&P Reviewed: Yes Patient is NPO: No (EMERGENCY, WILL PROCEED)
--- NOTE | 2016-12-03 01:35 | Post Anesthesia Evaluation ---
- Post Anesthesia Evaluation Patient Participated: Yes Airway Patent: Yes Stable Respiratory Function: Yes Nausea/Vomiting: No Temp > 96.8F: Yes Pain Manageable: Yes Adequeate Hydration: Yes Anesthesia Complications: No Block Receding Appropriately: Yes Patient on Ventilator: No
[2016-12-03] MEDS ORDERED: D5LR 1,000 ML IV SCH (02:00)
[2016-12-03] MEDS ORDERED: PITOCin/NS 20 UNIT/1000ML DRIP 20 UNITS/1,000 ML BAG IV SCH (02:00)
[2016-12-03] MEDS ORDERED: SODIUM CHLORIDE FLUSH SYRINGE 10 ML IV NR (02:00)
[2016-12-03] MEDS ORDERED: MORPHINE PCA 30MG/30ML IV SCH (02:00)
[2016-12-03] MEDS: ZOFRAN IV PRN ×2 (05:16→13:33)
[2016-12-03 06:05] LABS: Bacteria,Urine 1+ /HPF (Negative); Bilirubin,Urine NEG (Negative); Blood,Urine NEG (Negative); Ketones,Urine NEG (Negative); Leukocyte Esterase,Urine NEG (Negative); Nitrite,Urine NEG (Negative); Protein,Urine <15 mg/dL mg/dL (Negative); Urobilinogen,Urine < 2.0 mg/dL (<2.0)
[2016-12-03] MEDS: ANCEF/NS 1 GM/50 ML 1 GM/50 ML BAG IV SCH ×2 (08:04→15:46)
[2016-12-03] MEDS: PRENATAL VITAMIN PO SCH (10:03)
[2016-12-03] MEDS: FEOSOL PO SCH (10:03)
[2016-12-03] MEDS: BENADRYL PO PRN ×2 (10:11→21:09)
[2016-12-03 14:41] LABS: Hematocrit 27.6 % (30.3-42.9); Hemoglobin 8.9 gm/dl (10.1-14.3)
[2016-12-03] MEDS ORDERED: DIFLUCAN PO ONE (16:29)
[2016-12-03] MEDS: PERCOCET 5/325 PO PRN (17:39)
[2016-12-03] MEDS: MOTRIN PO PRN (23:28)
[2016-12-03] MEDS: NORCO 5/325 PO PRN (23:50)
[2016-12-04] MEDS: NORCO 5/325 PO PRN ×3 (04:30→14:37)
[2016-12-04] MEDS ORDERED: BOOSTRIX IM ONE (06:00)
[2016-12-04] MEDS ORDERED: M-M-R II VACCINE SUB-Q ONE (06:00)
--- NOTE | 2016-12-04 08:56 | Progress Note ---
Assessment and Plan A: POD 1 VSS Ambulating well well Mental status is good P: Continue postoperative care Encourage continued ambulation Subjective - Subjective Date of service: 12/04/16 Principal diagnosis: POD 1 Interval history: Pt is a 31yo BF EDC 12/27/16; presented to [facility] L&D complaining of severe abdominal pains after a fall in the shower. On presentation to Triage FHT's 170- 180 with decels - improved with IV hydration, but Ob u/s showed possible abruption, and there was marked tenderness with the u/s probe over the placenta. Her abdomen was firm, and abruption suspected. MD proceeded with a Repeat C Section with BTL. She received care at [facility] since 6 weeks and course has been complicated by previous c section x 3 and psychological stress due to her fiance's murder in May of this year. records are available, but GBS is unknown. Pt delievereed by repeat C/ S on 12/03 @ 0100. Patient reports: appetite normal, voiding normally, pain well controlled, ambulating normally [place]: doing well Objective - Vital Signs Latest vital signs: Vital Signs Temp Pulse Resp BP 12/04/16 08:16 20 12/03/16 23:00 98.6 F 77 16 122/82 12/03/16 17:39 18 12/03/16 16:20 98.0 F 75 18 128/87 12/03/16 12:50 18 12/03/16 12:00 98.1 F 76 20 132/86 12/03/16 10:07 18 12/03/16 08:56 97.8 F 77 17 127/87 Intake and Output 12/03/16 12/04/16 12/04/16 22:59 06:59 14:59 Intake Total 800 Balance 800 Intake: Oral 200 Intake, Free Water 600 Other: Total, Intake Amount 200 - Exam Cardiovascular: Present: Regular rate Lungs: Present: Normal air movement Vulva: both: normal (scant lochia) Uterus: Present: fundal height below umbilicus Extremities: Present: normal Deep Tendon Reflex Grade: Normal +2 Incision: Present: normal, dry, dressed - Labs Labs: Abnormal lab results 12/03/16 Range/Units 14:04 Hgb 8.9 L (10.1-14.3) gm/dl Hct 27.6 L (30.3-42.9) % - Allied health notes Allied health notes reviewed: nursing
[2016-12-04] MEDS: FEOSOL PO SCH (10:27)
[2016-12-04] MEDS: PRENATAL VITAMIN PO SCH (10:27)
[2016-12-04] MEDS: MOTRIN PO PRN ×3 (10:27→23:03)
[2016-12-04] MEDS: PERCOCET 5/325 PO PRN (18:18)
[2016-12-04] MEDS: BENADRYL PO PRN (18:19)
[2016-12-05] MEDS: NORCO 5/325 PO PRN ×3 (01:04→12:07)
[2016-12-05] MEDS: MOTRIN PO PRN ×2 (06:07→12:07)
--- NOTE | 2016-12-05 07:48 | Progress Note ---
Assessment and Plan A: POD 1 VSS Ambulating well well Mental status is good P: Continue postoperative care Encourage continued ambulation D/C today Subjective - Subjective Date of service: 12/05/16 Principal diagnosis: POD 1 Interval history: Pt is a 31yo BF EDC 12/27/16; presented to [facility] L[facility]D complaining of severe abdominal pains after a fall in the shower. On presentation to Triage FHT's 170- 180 with decels - improved with IV hydration, but Ob u/s showed possible abruption, and there was marked tenderness with the u/s probe over the placenta. Her abdomen was firm, and abruption suspected. proceeded with a Repeat C Section with BTL. She received care at [facility] since 6 weeks and course has been complicated by previous c section x 3 and psychological stress due to her fiance's murder in May of this year. records are available, but GBS is unknown. Pt delievereed by repeat C/ S on 12/03 @ 0100. Patient reports: appetite normal, voiding normally, pain well controlled, ambulating normally [place]: doing well Objective - Vital Signs Latest vital signs: Vital Signs Temp Pulse Resp BP 12/05/16 00:08 98 F 70 20 122/83 12/04/16 18:18 20 12/04/16 17:00 98.6 F 78 18 108/73 12/04/16 14:37 20 12/04/16 08:58 98.5 F 75 18 117/78 12/04/16 08:16 20 Intake and Output 12/04/16 12/05/16 12/05/16 22:59 06:59 14:59 Intake Total 620 240 Balance 620 240 Intake: Oral 380 Intake, Free Water 240 240 Other: Total, Intake Amount 380 # Voids Indwelling Catheter 2 Void 1 # Bowel Movements 0 - Exam Cardiovascular: Present: Regular rate Lungs: Present: Normal air movement Vulva: both: normal (scant lochia) Uterus: Present: fundal height below umbilicus Deep Tendon Reflex Grade: Normal +2 Incision: Present: normal, dry, intact - Allied health notes Allied health notes reviewed: nursing
--- NOTE | 2016-12-05 07:50 | Discharge Summary ---
Providers - Providers Date of Admission: 12/02/16 23:40 Date of discharge: 12/05/16 Attending physician: MARCY MARTIN MD Primary care physician: MARCY MARTIN MD Hospitalization Reason for admission: other (S/P fall in shower. Suspected abruption) Delivery: Procedure: repeat low transverse Incision: normal, dry, intact complications: none Discharge diagnosis: delivery Jermyn baby: female Hospital course: uneventful Condition at discharge: Good Disposition: DC-01 TO HOME OR SELFCARE Plan - Discharge Medications Prescriptions: Ferrous Sulfate [Feosol 325 MG tab] 325 mg PO BID #60 tablet HYDROcodone/APAP 5-325 [[place] 5/325] 1 each PO Q6HR PRN #30 tablet PRN Reason: Pain Ibuprofen [Motrin] 800 mg PO Q8HR PRN #30 tablet PRN Reason: Moder Pain Unrelieved By [place] Vit W-Ca,Fe,FA(<1 mg) [ Vitamins] 1 each PO DAILY #30 tablet - Provider Discharge Summary Activity: routine, no sex for 6 weeks, no heavy lifting 4 weeks, no strenuous exercise Diet: routine Instructions: routine Additional instructions: [] Smoking cessation referral if applicable(refer to patient education folder for contact #) [] Refer to [facility] Booklet Call your doctor immediately for: * Fever > 100.5 * Heavy vaginal bleeding ( >1 pad per hour) * Severe persistent headache * Shortness of breath * Reddened, hot, painful area to leg or breast * Drainage or odor from incision. * Keep incision clean and dry at all times and follow doctor's instructions regarding bathing/showering - Follow up plan Follow up: [facility] [Provider Group] - 7 Days
[2016-12-05] MEDS: BENADRYL PO PRN (07:56)
[2016-12-05] MEDS: FEOSOL PO SCH (12:08)
[2016-12-05] MEDS: PRENATAL VITAMIN PO SCH (12:09)
[2016-12-05 13:23] VITALS: BP 119/78
== END 2016-12-05 14:05 | disposition home or self-care (01) | DRG 765 ==
LOC: TRG 21:28 → APU 23:40 → OB 12-03 04:03
PROVIDERS: ADMIT Obstetrics & Gynecology; ATTEND Obstetrics & Gynecology
PROC: 10D00Z1 Extraction of Products of Conception, Low, Open Approach (ICD-10-PCS; principal; 2016-12-03)
PROC: 0UL70ZZ Occlusion of Bilateral Fallopian Tubes, Open Approach (ICD-10-PCS; 2016-12-03)
DX: O34.211 Maternal care for low transverse scar from previous cesarean delivery (principal); O60.14X0 Preterm labor third trimester with preterm delivery third trimester, not applicable or unspecified; O45.93 Premature separation of placenta, unspecified, third trimester; O99.62 Diseases of the digestive system complicating childbirth; K92.9 Disease of digestive system, unspecified; K21.9 Gastro-esophageal reflux disease without esophagitis; O76 Abnormality in fetal heart rate and rhythm complicating labor and delivery; O77.0 Labor and delivery complicated by meconium in amniotic fluid; Z3A.36 36 weeks gestation of pregnancy; Z37.0 Single live birth
CPT/HCPCS: 36415; 76815; 76819; 81001; 85014; 85018; 85025; 86850; 86900; 86901; 88307; 99211; A6250; C9250; G0463; J0690; J1885; J2250; J2270; J2405; J2590; J2765; J3010; J7030; J7120; J7121